=== PATIENT | male | born 1960 | race African-American/Black ===

== ENCOUNTER 2018-08-18 08:42 | Emergency (ER) | payer MEDICAID, OTHER ==
[~2018-08-18] VITALS: Ht 177.8 cm; Wt 77.0 kg
[2018-08-18 08:43] VITALS: BP 137/87
[2018-08-18] MEDS ORDERED: LIDOCAINE HCL 1% 20ML VIAL (Pyxis) INJ INFIL ONE (10:15)
== END 2018-08-18 11:22 | disposition home or self-care (01) ==
LOC: ER 09:48
DX: S01.01XA Laceration without foreign body of scalp, initial encounter (principal); I10 Essential (primary) hypertension; F17.200 Nicotine dependence, unspecified, uncomplicated; F14.10 Cocaine abuse, uncomplicated; Y08.89XA Assault by other specified means, initial encounter; Y93.64 Activity, baseball; Y92.89 Other specified places as the place of occurrence of the external cause; Y99.8 Other external cause status; Z88.0 Allergy status to penicillin
CPT/HCPCS: 12004; 99283; J3490

== ENCOUNTER 2022-06-03 16:32 | Emergency (ER) | payer MEDICAID, OTHER ==
[~2022-06-03] VITALS: Ht 175.3 cm; Wt 82.0 kg
[2022-06-03] MEDS ORDERED: BACITRACIN ZINC OINT UDPKT TOP ONE (18:15)
[2022-06-03] MEDS ORDERED: TETRACAINE 0.5% OPHTH DROPS 4ML BOTHEYE ONE (18:15)
[2022-06-03] MEDS ORDERED: HYDROCODONE/ACETAMINOPHEN 5/325MG TABLET PO ONE (18:15)
[2022-06-03] MEDS ORDERED: FLUORESCEIN SODIUM 1MG/STRIP BOTHEYE ONE (18:15)
[2022-06-03] MEDS ORDERED: TETANUS, DIPHTHERIA, PERTUSSIS VAC/PF 0.5ML (>10YR OLD) IM ONE (18:15)
[2022-06-03 18:19] VITALS: BP 149/95
[2022-06-03] MEDS ORDERED: CLIN-194 MT (19:39)
[2022-06-03] MEDS ORDERED: OXYM30SP26 BOTHNSTRLS (19:39)
[2022-06-03] MEDS ORDERED: HYDR-4001 MT (19:39)
== END 2022-06-03 21:09 | disposition home or self-care (01) ==
LOC: ER 16:32
DX: S01.111A Laceration without foreign body of right eyelid and periocular area, initial encounter (principal); S02.40CA Maxillary fracture, right side, initial encounter for closed fracture; S02.2XXA Fracture of nasal bones, initial encounter for closed fracture; Y08.89XA Assault by other specified means, initial encounter; Y93.9 Activity, unspecified; Y92.9 Unspecified place or not applicable; F17.210 Nicotine dependence, cigarettes, uncomplicated
CPT/HCPCS: 12002; 70486; 90715; 99284

== ENCOUNTER 2025-06-13 08:01 | Emergency (ER) | payer MEDICAID ==
[~2025-06-13] VITALS: Ht 172.7 cm; Wt 77.0 kg
[~2025-06-13 08:01] MED LIST: CLIN-194 MT; HYDR-4001 MT; OXYM30SP26 BOTHNSTRLS
[2025-06-13 08:12] VITALS: O2SAT 96
[2025-06-13] MEDS ORDERED: SULF1TAB48 MT (08:46)
[2025-06-13] MEDS ORDERED: CEPH500T MT (08:46)
[2025-06-13 10:08] VITALS: BP 160/99; PULSE 95; RESP 20; TEMP 36.7; O2SAT 96
== END 2025-06-13 10:09 | disposition home or self-care (01) ==
LOC: ER 08:01
DX: L03.113 Cellulitis of right upper limb (principal); F14.10 Cocaine abuse, uncomplicated; F12.10 Cannabis abuse, uncomplicated; I10 Essential (primary) hypertension; Z88.0 Allergy status to penicillin; Z90.81 Acquired absence of spleen; Z79.899 Other long term (current) drug therapy
CPT/HCPCS: 73120; 99283